=== PATIENT | male | born 1985 ===

== ENCOUNTER 2017-09-14 21:12 | Emergency (ER) | payer SELFPAY ==
[2017-09-14 21:12] VITALS: BMI 28.0
[2017-09-14 21:22] VITALS: RESP 16
[2017-09-14] MEDS ORDERED: Sodium Chloride 0.9% 1,000 ML IV STA (22:01)
[2017-09-14 22:24] LABS: VENOUS BLOOD GAS BASE EXCESS -5.6 mmol/L (0.0-2.0); VENOUS BLOOD GAS PCO2 81 mmHg (40-60); VENOUS BLOOD GAS PO2 34 mm/Hg (30-55); VENOUS BLOOD PH 7.11 (7.32-7.43)
[2017-09-14 22:54] LABS: BASO % 0.4 % (0.0-2.0); EOS % 0.2 % (0.0-4.0); HEMOGLOBIN 14.7 g/dL (12.0-18.0); LYMPH # 0.9 K/uL (1.0-4.3); MEAN CELL VOLUME 87.6 fl (80.0-94.0); MEAN CORPUSCULAR HEMOGLOBIN 30.4 pg (27.0-31.0); MEAN CORPUSCULAR HGB CONC 34.7 g/dL (33.0-37.0); MEAN PLATELET VOLUME 10.3 fl (7.2-11.7); MONO # 0.8 K/uL (0.0-0.8); MONO % 11.7 % (0.0-10.0); NEUT # 5.3 K/uL (1.8-7.0); NEUT % 74.7 % (50.0-75.0); NRBC % 0.3 % (0.0-0.0); RBC 4.85 Mil/uL (4.40-5.90); RED CELL DISTRIBUTION WIDTH 12.9 % (11.5-14.5); WHITE BLOOD COUNT 7.1 K/uL (4.8-10.8)
[2017-09-14 23:00] LABS: ALB/GLOB RATIO 1.4 (1.0-2.1); ALBUMIN 4.4 g/dL (3.5-5.0); ALT/SGPT 65 U/L (21-72); AST/SGOT 54 U/L (17-59); BLOOD UREA NITROGEN 8 mg/dl (9-20); CALCIUM 9.2 mg/dL (8.4-10.2); GFR AFRICAN-AMERICAN > 60; GFR NON-AFRICAN AMERICAN > 60
--- NOTE | 2017-09-14 23:15 | ED PDOC ---
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 states since yesterday he's had a gradual onset R sided retro-orbital headache. Also c/o tongue pain and L sided chest pain. Reports that headache is worse when he looks at the light. He took Advil yesterday with transient relief of headache. Further reports the last time used cocaine 5 days ago. Denies head injury, sudden onset of headache, vomiting, abdominal pain, nausea, diarrhea, dysuria, hematuria, neck pain/stiffness, rash, sick contacts, recent travel. Past Medical History Reviewed: Historical Data, Nursing Documentation, Vital Signs Vital Signs: Last Vital Signs Temp 100.9 F H 09/14/17 22:39 Pulse 71 09/14/17 23:20 Resp 16 09/14/17 21:19 BP 114/70 09/14/17 22:10 Pulse Ox 98 09/14/17 23:20 - Medical History PMH: Depression, Schizophrenia Denies: Alzheimer's Disease, Anemia, Anxiety, Arthritis, Asthma, Atrial Fibrillation, Bipolar Disorder, Bronchitis, Cardia Arrhythmia, CHF, COPD, Crohn' s Disease, Dementia, Diabetes, Diverticulitis, Emphysema, Fractures, Gastritis, Gall Bladder Disease, Hepatitis, HIV, HTN, Hypercholesterolemia, Hyperthyroidism , Hypothyroidism, Kidney Stones, Migraine, Mitral Valve Prolapse, Multiple Sclerosis, Osteoporosis, Pancreatitis, Parkinson's Disease, Peripheral Edema, Personality Disorder, Pneumonia, Pulmonary Embolism, Chronic Kidney Disease, Rheumatoid Arthritis, Seizures, Sickle Cell Disease, Sexually Transmitted Disease, Sleep Apnea, TIA - Surgical History Surgical History: Denies: Appendectomy, CABG, Carotid Endarterectomy, Cholecystectomy, Coronary Stent, Pacemaker, Tonsillectomy - Family History Family History: States: No Known Family Hx - Immunization History Hx Tetanus Toxoid Vaccination: No Hx Influenza Vaccination: No Hx Pneumococcal Vaccination: No - Home Medications Home Medications: Ambulatory Orders Medication Instructions Recorded Divalproex [Depakote DR] 250 mg PO BID #60 tcp 01/22/16 QUEtiapine [Seroquel] 100 mg PO HS #30 tab 01/22/16 traZODone [Desyrel] 100 mg PO HS PRN #30 tab 01/22/16 Amoxicillin/Potassium Clav 1 tab PO TID #30 tab 09/15/17 [Augmentin 500 mg-125 mg] Fluticasone Propionate [Flonase] 2 spr NS DAILY PRN #1 bottle 09/15/17 Naproxen [Naprosyn] 500 mg PO BID PRN #14 tab 09/15/17 - Allergies Allergies/Adverse Reactions: Allergies Allergy/AdvReac Type Severity Reaction Status Date / Time No Known Allergies Allergy Verified 01/16/16 11:56 Review of Systems ROS Statement: Except As Marked, All Systems Reviewed And Found Negative Physical Exam - Reviewed Nursing Documentation Reviewed: Yes Vital Signs Reviewed: Yes - Physical Exam Appears: Positive for: Well, Non-toxic, No Acute Distress Head Exam: Positive for: ATRAUMATIC, NORMAL INSPECTION, NORMOCEPHALIC Skin: Positive for: Normal Color, Warm. Negative for: Rash Eye Exam: Positive for: Normal appearance, EOMI, PERRL, Other (no photosensitivity) ENT: Positive for: Normal ENT Inspection. Negative for: Pharyngeal Erythema, Tonsillar Exudate, Tonsillar Swelling Neck: Positive for: Normal, Painless ROM Cardiovascular/Chest: Positive for: Regular Rate, Rhythm Respiratory: Positive for: CNT, Normal Breath Sounds Gastrointestinal/Abdominal: Positive for: Normal Exam, Soft. Negative for: Tenderness (to deep palpation) Back: Positive for: Normal Inspection. Negative for: L CVA Tenderness, R CVA Tenderness Extremity: Positive for: Normal ROM Neurologic/Psych: Positive for: Alert, Oriented. Negative for: Aphasia, Facial Droop - Laboratory Results Result Diagrams: 09/14/17 22:47 09/14/17 22:47 - ECG ECG: Positive for: Interpreted By Me ECG Rhythm: Positive for: Sinus Rhythm. Negative for: ST/T Changes Rate: 71 O2 Sat by Pulse Oximetry: 98 - Radiology X-Ray: Interpreted by Me (CXR) - Progress ED Course And Treament: Labs, tylenol 975mg PO, reglan 10mg IV, IV NS bolus x 1, CT head w/o contrast ordered. Pt. placed on isolation. Case d/w Dr. Hinson who agrees with care. automobile parker [id number] Pt. informed that he requires a lumbar puncture to r/o meningitis but refused lumbar puncture. Pt. informed that meningitis can cause if not treated but still refused. Pt. states that his headache is completely better at this time and he does not believe he needs it. Disposition - Clinical Impression Clinical Impression: Acute sinusitis - Patient ED Disposition Is Patient to be Admitted: No - Disposition Referrals: [facility] [Outside] Disposition: Routine/Home Disposition Time: 00:03 Condition: IMPROVED Additional Instructions: RONNIE SOSA, thank you for letting us take care of you today. Your provider was Keron Hinson MD and you were treated for CHEST PAIN. The emergency medical care you received today was directed at your acute symptoms. If you were prescribed any medication, please fill it and take as directed. It may take several days for your symptoms to resolve. Return to the Emergency Department if your symptoms worsen, do not improve, or if you have any other problems. Please contact your doctor or call one of the physicians/clinics you have been referred to that are listed on the Patient Visit Information form that is included in your discharge packet. Bring any paperwork you were given at discharge with you along with any medications you are taking to your follow up visit. Our treatment cannot replace ongoing medical care by a primary care provider outside of the emergency department. Thank you for allowing the [facility] team to be part of your care today. If you had an X-Ray or CT scan: A Radiologist will review the ED reading if any change in treatment is needed we will contact you. If you had a blood, urine, or wound culture: It will take several days for the results, if any change in treatment is needed we will contact you. If you had an STI test: It will take 48 hours for the results. Please call after 1 week if you have not heard back. Prescriptions: Amoxicillin/Potassium Clav [Augmentin 500 mg-125 mg] 1 tab PO TID #30 tab Fluticasone Propionate [Flonase] 2 spr NS DAILY PRN #1 bottle PRN Reason: Allergy Symptoms Naproxen [Naprosyn] 500 mg PO BID PRN #14 tab PRN Reason: Pain Instructions: Sinusitis, Adult (DC) Forms: [employer] ([place]amanian)
[2017-09-14 23:21] LABS: URINE BILIRUBIN NEGATIVE (NEGATIVE); URINE BLOOD SMALL (NEGATIVE); URINE CLARITY CLEAR (Clear); URINE COLOR STRAW (YELLOW); URINE GLUCOSE (UA) NEG (Normal); URINE LEUKOCYTE ESTERASE NEG Leu/uL (Negative); URINE PROTEIN NEGATIVE (NEGATIVE); URINE UROBILINOGEN 0.2-1.0 mg/dL (0.2-1.0)
[2017-09-14 23:34] LABS: BARBITURATES, UR NEGATIVE (NEGATIVE); BENZODIAZEPINES, UR NEGATIVE (NEGATIVE); OPIATES, UR NEGATIVE (NEGATIVE); PHENCYCLIDINE, UR NEGATIVE (NEGATIVE)
[2017-09-15 00:11] VITALS: BP 116/66; PULSE 76; TEMP 98.4; O2SAT 100
--- NOTE | 2017-09-15 08:31 | RAD ---
HISTORY: COMPARISON: 10/27/2017. TECHNIQUE: Chest PA and lateral FINDINGS: LINES AND TUBES: None. LUNG AND PLEURA: The lungs are well inflated and clear. There are scattered calcified granulomas in the lungs. No pleural effusion or pneumothorax. HEART AND MEDIASTINUM: The heart is not enlarged. The hilar and mediastinal contours are within normal limits. SKELETAL STRUCTURES: The bony structures are within normal limits for the patient's age. VISUALIZED UPPER ABDOMEN: Normal. OTHER FINDINGS: None. IMPRESSION: No active pulmonary disease.
--- NOTE | 2017-09-15 09:20 | CT ---
Date of service: 09/14/2017 PROCEDURE: CT HEAD WITHOUT CONTRAST. HISTORY: R sided headache COMPARISON: None available. TECHNIQUE: Axial computed tomography images were obtained through the head/brain without intravenous contrast. Radiation dose: Total exam DLP = 730.09 mGy-cm. This CT exam was performed using one or more of the following dose reduction techniques: Automated exposure control, adjustment of the mA and/or kV according to patient size, and/or use of iterative reconstruction technique. FINDINGS: HEMORRHAGE: No intracranial hemorrhage. BRAIN: Bolaños-white matter differentiation is preserved. There is no mass, mass effect or abnormal extra-axial fluid collection. There is no territorial infarction. The midline sagittal structures are normal. VENTRICLES: The ventricles are normal in size, shape and configuration. CALVARIUM: There is no calvarial fracture or extracranial soft tissue swelling. PARANASAL SINUSES: There is mild mucoperiosteal thickening in the left posterior ethmoid air cells, the remaining included paranasal sinuses are clear P MASTOID AIR CELLS: Predominantly clear. OTHER FINDINGS: None. IMPRESSION: No acute intracranial abnormality. A preliminary report was provided by [facility].
--- NOTE | 2017-09-15 09:59 | CARD ---
APPROVED REPORT Date of service: 09/14/2017 EKG Measurement Heart [id number] <Conclusion> Normal sinus rhythm Normal ECG
== END 2017-09-15 00:12 | disposition home or self-care (01) ==
LOC: H.ER 21:12
DX: J01.90 Acute sinusitis, unspecified (principal); F17.200 Nicotine dependence, unspecified, uncomplicated
CPT/HCPCS: 70450; 71046; 80053; 81003; 82803; 84484; 85025; 87040; 87070; 87086; 87430; 87804; 93005; 96360; 99284; G0480; J2765; J7030

== ENCOUNTER 2018-06-26 09:02 | Emergency (ER) | payer SELFPAY ==
[2018-06-26 09:08] VITALS: RESP 20; O2SAT 100
[2018-06-26 09:12] VITALS: BMI 25.6
[2018-06-26 09:14] VITALS: BP 113/67; PULSE 72; TEMP 97.9
[2018-06-26] MEDS ORDERED: Lidocaine 5% Patch TD STA (10:03)
[2018-06-26] MEDS ORDERED: Lidocaine 5% Patch TD ONE (10:10)
--- NOTE | 2018-06-26 10:37 | ED PDOC ---
HPI: Back Time Seen by Provider: 06/26/18 09:23 Chief Complaint (Nursing): Back Pain Chief Complaint (Provider): Back Pain History Per: Patient History/Exam Limitations: no limitations Onset/Duration Of Symptoms: Days Current Symptoms Are (Timing): Still Present Additional Complaint(s): 33 year old male with a past medical history of depression and schizophrenia who is presenting to the ED for evaluation of back pain ongoing for 2 days. 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 He reports having upper back pain and lower neck pain that is worse with movement. Patient denies any fall or trauma and admits that he took Tramadol and over the counter medications with no relief in symptoms. He offers no other medical complaints at this time. PMD: none provided Past Medical History Reviewed: Historical Data, Nursing Documentation, Vital Signs Vital Signs: Last Vital Signs Temp 97.9 F 06/26/18 09:06 Pulse 72 06/26/18 09:06 Resp 20 06/26/18 09:06 BP 113/67 06/26/18 09:06 Pulse Ox 100 06/26/18 09:06 Primary Care Physician: NO FAMILY PROVIDER - Medical History PMH: Depression, Schizophrenia Denies: Alzheimer's Disease, Anemia, Anxiety, Arthritis, Asthma, Atrial Fibrillation, Bipolar Disorder, Bronchitis, Cardia Arrhythmia, CHF, COPD, Crohn's Disease, Dementia, Diabetes, Diverticulitis, Emphysema, Fractures, Gastritis, Gall Bladder Disease, Hepatitis, HIV, HTN, Hypercholesterolemia, Hyperthyroidism, Hypothyroidism, Kidney Stones, Migraine, Mitral Valve Prolapse, Multiple Sclerosis, Osteoporosis, Pancreatitis, Parkinson's Disease, Peripheral Edema, Personality Disorder, Pneumonia, Pulmonary Embolism, Chronic Kidney Disease, Rheumatoid Arthritis, Seizures, Sickle Cell Disease, Sexually Transmitted Disease, Sleep Apnea, TIA - Surgical History Surgical History: Denies: Appendectomy, CABG, Carotid Endarterectomy, Cholecystectomy, Coronary Stent, Pacemaker, Tonsillectomy - Family History Family History: States: Unknown Family Hx - Social History Current smoker - smoking cessation education provided: Yes Alcohol: None Drugs: Cannabis - Immunization History Hx Tetanus Toxoid Vaccination: No Hx Influenza Vaccination: No Hx Pneumococcal Vaccination: No - Home Medications Home Medications: Ambulatory Orders Medication Instructions Recorded Divalproex [Depakote DR] 250 mg PO BID #60 tcp 01/22/16 QUEtiapine [Seroquel] 100 mg PO HS #30 tab 01/22/16 traZODone [Desyrel] 100 mg PO HS PRN #30 tab 01/22/16 Amoxicillin/Potassium Clav 1 tab PO TID #30 tab 09/15/17 [Augmentin 500 mg-125 mg] Fluticasone Propionate [Flonase] 2 spr NS DAILY PRN #1 bottle 09/15/17 Naproxen [Naprosyn] 500 mg PO BID PRN #14 tab 09/15/17 Cyclobenzaprine [Cyclobenzaprine 10 mg PO TID PRN #15 tab 06/26/18 HCl] Lidocaine 5% [Lidoderm] 1 ea TD QAM #10 patch 06/26/18 - Allergies Allergies/Adverse Reactions: Allergies Allergy/AdvReac Type Severity Reaction Status Date / Time No Known Allergies Allergy Verified 01/16/16 11:56 Review of Systems ROS Statement: Except As Marked, All Systems Reviewed And Found Negative Musculoskeletal: Positive for: Neck Pain, Back Pain Physical Exam - Reviewed Nursing Documentation Reviewed: Yes Vital Signs Reviewed: Yes - Physical Exam Appears: Positive for: Non-toxic, No Acute Distress Head Exam: Positive for: ATRAUMATIC, NORMAL INSPECTION, NORMOCEPHALIC Skin: Positive for: Normal Color, Warm, DRY Eye Exam: Positive for: Normal appearance Neck: Positive for: Normal (but with point tenderness to T1/C7 region and point tenderness to left scapula, no deformity noted ) Cardiovascular/Chest: Positive for: Regular Rate, Rhythm. Negative for: Murmur Respiratory: Positive for: Normal Breath Sounds. Negative for: Respiratory Distress Gastrointestinal/Abdominal: Positive for: Normal Exam, Soft. Negative for: Tenderness Back: Positive for: Normal Inspection. Negative for: L CVA Tenderness, R CVA Tenderness, Vertebral Tenderness Extremity: Positive for: Normal ROM. Negative for: Deformity, Swelling Neurological/Psych: Positive for: Awake, Alert, Normal Tone, Oriented. Negative for: Motor/Sensory Deficits - ECG O2 Sat by Pulse Oximetry: 100 (RA) Pulse Ox Interpretation: Normal Medical Decision Making Medical Decision Making: Time: 10:01 Impression: 33 year old male with musculoskeletal back pain Plan: --X-Ray Cervical Spine --Flexeril 10 mg PO --Lidoderm Patch --X-Ray Thoracic Spine 11:15 X-rays showed no acute fractures. Patient reports that symptoms have improved and upon provider evaluation, he is stable for discharge home. Scribe Attestation: Documented by Liza Jordan, acting as a scribe for Robbin Sierra MD. Provider Scribe Attestation: All medical record entries made by the Scribe were at my direction and personally dictated by me. I have reviewed the chart and agree that the record accurately reflects my personal performance of the history, physical exam, medical decision making, and the department course for this patient. I have also personally directed, reviewed, and agree with the discharge instructions and disposition. Disposition - Clinical Impression Clinical Impression: Musculoskeletal back pain - Patient ED Disposition Is Patient to be Admitted: No - Disposition Referrals: [facility] [Outside] Disposition Time: 11:18 Condition: IMPROVED Prescriptions: Cyclobenzaprine [Cyclobenzaprine HCl] 10 mg PO TID PRN #15 tab PRN Reason: Muscle Pain Lidocaine 5% [Lidoderm] 1 ea TD QAM #10 patch Instructions: Upper Back Pain Forms: [employer] ([place])
--- NOTE | 2018-06-26 13:17 | RAD ---
Date of service: 06/26/2018 PROCEDURE: Cervical Spine Radiographs. HISTORY: Pain. No history of recent/ related trauma provided. COMPARISON: None available. TECHNIQUE: 3 views obtained. FINDINGS: BONES: Alignment maintained. No fracture. Dens Intact. DISC SPACES: Normal. SOFT TISSUES: Normal. No prevertebral soft tissue swelling. OTHER FINDINGS: None. IMPRESSION: Normal cervical spine radiographs
--- NOTE | 2018-06-26 13:17 | RAD ---
Date of service: 06/26/2018 HISTORY: Pain. No history of recent/ related trauma provided. COMPARISON: No prior. TECHNIQUE: 2 views obtained. FINDINGS: BONES: Minimal levoscoliosis. No fracture. DISC SPACES: Normal. SOFT TISSUES: Normal. OTHER FINDINGS: None. IMPRESSION: No significant or acute findings to account for/ related to the clinical presentation. Additional benign and/or incidental findings described above.
== END 2018-06-26 11:30 | disposition home or self-care (01) ==
LOC: H.ER 09:02 → SUPCPDRO 09:02 → H.ER 11:30
DX: M54.9 Dorsalgia, unspecified (principal); F20.9 Schizophrenia, unspecified